=== PATIENT | female | born 1990 | race African-American/Black ===

== ENCOUNTER 2016-09-16 09:24 | Outpatient (CLI) | payer MEDICAID ==
[~2016-09-16] VITALS: Ht 154.9 cm; Wt 65.3 kg
[~2016-09-16 09:24] MED LIST: AC325T PO; AMOX-208 PO; CEPH500C PO; CLOT15CR5 TP; CLOT45CR28 VG; CPR500T PO; CYCL10TA9 PO; DOCU-143 PO; DOXY100C2 PO; Docusate Sodium PO; FERR-57 PO; FERR325C PO; Hydrocodone Bit/Acetaminophen PO; IBP800T PO; IBUP-1773 PO; Ibuprofen PO; NAPR-243 PO; NITR-65 PO; NITR100C3 PO; ONDA8TAB13 PO; ONDAN4ODT PO; OSLT75C PO; PREN1TAB39 PO; PREN1TAB71 PO; PREN1TAB86 PO; SULF-222 PO; SULF1TAB38 PO
--- OUTSIDE RECORDS SUMMARY | 2016-09-16 09:28 | XMS REPORT | Continuity of Care Document ---
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 Name Role Phone ROBEL DSOUZA MD PCP Insurance Providers Payer Name Policy Number Subscriber Name Relationship [facility] [employer] [id number] Cynthia Lam 18 Self / Same As Patient Advance Directives Directive Response Recorded Date/Time Advance Directives No 06/21/14 12:59pm Health Care Power of Pool Servicer No 06/21/14 12:59pm Organ Donor Yes 06/21/14 12:59pm Resuscitation Status Full Code 06/21/14 12:59pm Problems Medical Problems Problem Onset Date Status Threatened Unknown Active Urinary tract infection in Unknown Active Spontaneous Unknown Active Medications Medication Dose Route Sig Days/Qty Instructions Order Date Discontinued Date Status Amoxicillin Trihydrate Mg PO THREE TIMES A DAY 02/14/10 11/03/10 Discontinued Vits W-Ca,Fe,Fa(<1MG) 1 Each PO TWICE A DAY 08/18/10 Discontinued Ferrous Sulfate 325 ( PO DAILY 08/18/10 11/03/10 Discontinued Trimethoprim/Sulfamethoxazole 1 Ea PO TWICE A DAY 19 Qty 05/14/1117/08 Discontinued Ciprofloxacin 1 Tab PO TWICE A DAY 5 Days 09/17/11 11/26/11 Discontinued Naproxen 1 Each PO TWICE A DAY PRN 30 Qty 09/17/11 11/26/11 Discontinued Ondansetron HCl 4 Mg PO EVERY 4HRS 5 Qty FOR NAUSEA AND VOMITING 03/12/13 Discontinued Cephalexin Monohydrate (Keflex) 1 Each PO THREE TIMES A DAY 7 Days 11/0403/12/13 Discontinued Trimethoprim/Sulfamethoxazole 1 Ea PO TWICE A DAY 20 Qty 04/25/1304/07 Discontinued Cephalexin Monohydrate (Keflex) 1 Each PO THREE TIMES A DAY 21 Qty 04/0701/01/14 Discontinued Cephalexin Monohydrate (Keflex) 1 Each PO THREE TIMES A DAY 30 Qty 01/01/14 Discontinued Ondansetron 8 Mg PO EVERY 6 HOURS PRN NAUSEA/VOMITING 10 Qty 11/17/13 01/01/14 Discontinued Nitrofurantoin Macrocrystals 1 Each PO TWICE A DAY 14 Qty FOR INFECTION 01/01/14 06/17/14 Discontinued Vit/Fe Fumarate/Fa 1 Each PO DAILY 06/17/14 Active Ferrous Sulfate 325 Mg PO DAILY 06/17/14 Active Cephalexin Monohydrate (Keflex) 1 Each PO THREE TIMES A DAY 21 Qty 06/21/14 Discontinued Clotrimazole 15 Gm TP BEDTIME 06/17/14 06/21/14 Discontinued Acetaminophen 500 Mg PO EVERY 6 HOURS PRN prn 06/21/14 Active Social History Social History Problem Response Recorded Date/Time Alcohol Use Denies Use 01/01/2014 9:03pm Recreational Drug Use Y +IV METH USE, THC (DENIES WITH THIS VISIT 10/02/13) 05/2014 9:03pm Recent Foreign Travel No 01/01/2014 9:03pm Smoking Status Former Smoker 06/21/2014 1:00pm Do you dip or chew tobacco? No 06/21/2014 1:00pm Query Response Start Date Stop Date Smoking Status Former Smoker 06/21/2013 Hospital Discharge Instructions No hospital discharge instructions. Plan of Care No plan of care. Functional Status No functional status results. Allergies, Adverse Reactions, Alerts Allergen Type Severity Reaction Status Last Updated No Known Drug Allergies Active 05/12/12 Immunizations Name Given Type Date of Influenza Vaccine 05/25/14 Historical Tetanus Booster (TDap) Unknown Historical Vital Signs Acute Vital Signs Vital Response Date/Time Temperature (Fahrenheit) 98.2 degrees F (97.6 - 99.5) Temperature (Calculated Celsius) 36.75451 degrees C (36.4 - 37.5) Temperature Source Temporal Pulse Rate (adult) 90 bpm (60 - 90) Respiratory Rate 18 bpm (12 - 24) O2 Sat by Pulse Oximetry 99 % (88 - 100) Blood Pressure 110/63 mm Hg Pain Pain Intensity 7 Height (Feet) 5 feet Height (Inches) 2.00 inches Height (Calculated Centimeters) 157.655437 cm Weight (Pounds) 166 pounds Weight (Ounces) 0.4 oz Weight (Calculated Grams) 10620.334 gm Weight (Calculated Kilograms) 75.299789 kilograms Calculated BMI 30.36 Results Test Source Date Result Interp. Ref. Range Comments Acetaminophen Level June 09, 2008 4:05am < 10 UG/ML L 10.0-30.0 Acetaminophen Screen June 09, 2008 1:30am Negative - APAP= ACETAMINOPHEN/PARACETAMOL Alanine Aminotransferase (ALT/SGPT) November 17, 2013 9:15pm 25 U/L L 30- 65 Albumin November 17, 2013 9:15pm 4.1 G/DL N 3.4-5.0 Alkaline Phosphatase November 17, 2013 9:15pm 66 U/L N 50-136 Amylase Level November 17, 2013 9:15pm 40 U/L N 25-115 Aspartate Amino Transf (AST/SGOT) November 17, 2013 9:15pm 10 U/L L 15-37 BUN/Creatinine Ratio November 17, 2013 9:15pm 10 - Band Neutrophils September 17, 2011 12:35pm 28 % - Basophils # (Auto) January 01, 2014 10:06pm 0.0 10^3/uL N 0.0-0.1 Basophils % (Manual) September 17, 2011 12:35pm 0 % - Basophils (%) (Auto) January 01, 2014 10:06pm 1 % N 0-10 Blood Urea Nitrogen November 17, 2013 9:15pm 8 MG/DL N 7-18 Calcium Level November 17, 2013 9:15pm 9.0 MG/DL N 8.5-10.1 Carbon Dioxide Level November 17, 2013 9:15pm 26 MMOL/L N 21-32 Chlamydia DNA Probe February 14, 2010 2:27am NEG - Chlamydia/GC DNA Probe Source February 14, 2010 2:27am CERVIX - Chloride Level November 17, 2013 9:15pm 101 MMOL/L N 101-110 Creatinine November 17, 2013 9:15pm 0.8 MG/DL N 0.6-1.3 Eosinophils # (Auto) January 01, 2014 10:06pm 0.1 10^3/uL N 0.0-0.3 Eosinophils % (Manual) September 17, 2011 12:35pm 0 % - Eosinophils (%) (Auto) January 01, 2014 10:06pm 2 % N 0-10 Glucose Level November 17, 2013 9:15pm 80 MG/DL N 74-106 Group A Streptococcus Screen November 03, 2010 8:21am NEGATIVE - HIV (1&2) Antibody May 12, 2012 4:08pm NR - Hematocrit January 01, 2014 10:06pm 29 % L 35-52 Hemoglobin January 01, 2014 10:06pm 10.4 G/DL L 11.5-16.0 Human Chorionic Gonadotropin, Quant January 01, 2014 10:06pm 85678 MIU/ML H -6 HCG QUANT REFERENCE RANGES: MALE: <0.5 - 2.67 NON- FEMALE: <0.5 - 2.90 FEMALE: 0.2 - 1 WK: 5 - 50 1 - 2 WK: 50 - 500 2 - 3 WK: 100 - 5,000 3 - 4 WK: 500 - 10,000 4 - 5 WK: 1,000 - 50,000 5 - 6 WK: 10,000 - 100,000 6 - 8 WK: 15,000 - 200,000 8 - 12 WK: 10,000 - 100,000 Lipase November 17, 2013 9:15pm 113 U/L N 73-393 Lymphocytes # (Auto) January 01, 2014 10:06pm 1.3 X 10^3 N 1.0-4.0 Lymphocytes % (Manual) September 17, 2011 12:35pm 4 % - Lymphocytes (%) (Auto) January 01, 2014 10:06pm 34 % N 12-44 Mean Corpuscular Hemoglobin January 01, 2014 10:06pm 32 PG N 25-34 Mean Corpuscular Hemoglobin Concent January 01, 2014 10:06pm 36 G/DL N 32- 36 Mean Corpuscular Volume January 01, 2014 10:06pm 89 FL N 80-99 Mean Platelet Volume January 01, 2014 10:06pm 9.6 FL N 7.4-10.4 Monocytes # (Auto) January 01, 2014 10:06pm 0.3 X 10^3 N 0.0-1.0 Monocytes % (Manual) September 17, 2011 12:35pm 1 % - Monocytes (%) (Auto) January 01, 2014 10:06pm 8 % N 0-12 Neisseria gonorrhoeae DNA Probe February 14, 2010 2:27am NEG - Neutrophils # (Auto) January 01, 2014 10:06pm 2.1 X 10^3 N 1.8-7.8 Neutrophils % (Manual) September 17, 2011 12:35pm 67 % - Neutrophils (%) (Auto) January 01, 2014 10:06pm 56 % N 42-75 Platelet Count January 01, 2014 10:06pm 202 10^3/uL N 130-400 Potassium Level November 17, 2013 9:15pm 3.6 MMOL/L N 3.6-5.0 Red Blood Count January 01, 2014 10:06pm 3.28 10^6/uL L 4.35-5.85 Red Cell Distribution Width January 01, 2014 10:06pm 11.7 % N 10.0-14.5 Salicylates Level June 09, 2008 1:07am 1.6 MG/DL L 2.8-20.0 Has specimen been collected/obtained? Y Serum Test, Qualitative May 12, 2012 1:00pm NEGATIVE - Sodium Level November 17, 2013 9:15pm 137 MMOL/L N 135-145 Total Bilirubin November 17, 2013 9:15pm 0.6 MG/DL N 0.0-1.0 Total Protein November 17, 2013 9:15pm 7.5 G/DL N 6.4-8.2 Ur Tricyclic Antidepressants Screen April 24, 2013 11:30pm NEGATIVE - Urine Amorphous Sediment August 27, 2012 10:34pm MOD NADEGE PHOSPHATE /LPF H - Has specimen been collected/obtained? YSpecimen Description CLEAN CATCH Urine Amphetamines Screen April 24, 2013 11:30pm POSITIVE H - Urine Bacteria January 01, 2014 10:03pm FEW /HPF H - Has specimen been collected/obtained? YSpecimen Description CLEAN CATCH Urine Barbiturates Screen April 24, 2013 11:30pm NEGATIVE - Urine Benzodiazepines Screen April 24, 2013 11:30pm NEGATIVE - Urine Bilirubin January 01, 2014 10:03pm NEGATIVE - Has specimen been collected/obtained? YSpecimen Description CLEAN CATCH Urine Casts January 01, 2014 10:03pm NONE /LPF - Has specimen been collected/obtained? YSpecimen Description CLEAN CATCH Urine Clarity January 01, 2014 10:03pm SLIGHTLY CLOUDY - Has specimen been collected/obtained? YSpecimen Description CLEAN CATCH Urine Cocaine Screen April 24, 2013 11:30pm NEGATIVE - Urine Color January 01, 2014 10:03pm YELLOW - Has specimen been collected /obtained? YSpecimen Description CLEAN CATCH Urine Crystals January 01, 2014 10:03pm NONE /LPF - Has specimen been collected/obtained? YSpecimen Description CLEAN CATCH Urine Culture Indicated January 01, 2014 10:03pm NO - Has specimen been collected/obtained? YSpecimen Description CLEAN CATCH Urine Glucose (UA) January 01, 2014 10:03pm NEGATIVE - Has specimen been collected/obtained? YSpecimen Description CLEAN CATCH Urine Ketones January 01, 2014 10:03pm NEGATIVE - Has specimen been collected/obtained? YSpecimen Description CLEAN CATCH Urine Leukocyte Esterase January 01, 2014 10:03pm 1+ H - Has specimen been collected/obtained? YSpecimen Description CLEAN CATCH Urine Methamphetamines Screen April 24, 2013 11:30pm POSITIVE H - Urine Mucus January 01, 2014 10:03pm NEGATIVE /LPF - Has specimen been collected/obtained? YSpecimen Description CLEAN CATCH Urine Nitrate June 11, 2007 10:35pm Negative - Has specimen been collected/obtained? YSpecimen Description CLEAN CATCH Urine Nitrite January 01, 2014 10:03pm NEGATIVE - Has specimen been collected/obtained? YSpecimen Description CLEAN CATCH Urine Opiates Screen April 24, 2013 11:30pm NEGATIVE - Urine Phencyclidine Screen April 24, 2013 11:30pm NEGATIVE - Urine Test February 14, 2010 1:33am POSITIVE - Urine Propoxyphene Screen April 24, 2013 11:30pm NEGATIVE - Urine Protein January 01, 2014 10:03pm NEGATIVE - Has specimen been collected/obtained? YSpecimen Description CLEAN CATCH Urine RBC January 01, 2014 10:03pm NONE /HPF - Has specimen been collected/obtained? YSpecimen Description CLEAN CATCH Urine Specific [place] January 01, 2014 10:03pm 1.015 L - Has specimen been collected/obtained? YSpecimen Description CLEAN CATCH Urine Squamous Epithelial Cells January 01, 2014 10:03pm 2-5 /HPF - Has specimen been collected/obtained? YSpecimen Description CLEAN CATCH Urine Trichomonas August 27, 2012 10:34pm MODERATE /HPF H - Has specimen been collected/obtained? YSpecimen Description CLEAN CATCH Urine Urobilinogen January 01, 2014 10:03pm 1 MG/DL - Has specimen been collected/obtained? YSpecimen Description CLEAN CATCH Urine WBC January 01, 2014 10:03pm RARE /HPF - Has specimen been collected/obtained? YSpecimen Description CLEAN CATCH Urine Yeast February 14, 2010 1:33am FEW H - Has specimen been collected/ obtained? YSpecimen Description CLEAN CATCH Urine pH January 01, 2014 10:03pm 7 - Has specimen been collected/ obtained? YSpecimen Description CLEAN CATCH White Blood Count January 01, 2014 10:06pm 3.8 10^3/uL L 4.3-11.0 Serum Alcohol June 09, 2008 1:07am 137 MG/DL N 5-300 Has specimen been collected/obtained? Y Estimat Glomerular Filtration Rate November 17, 2013 9:15pm > 60 - GFR INTERPRETIVE DATA UNITS FOR ESTIMATED GFR (eGFR): mL/min/1.73 M2 REFERENCE RANGE FOR ESTIMATED GFR (eGFR) eGFR NORMAL eGFR >60 MODERATELY DECREASED eGFR 30-59 SEVERLY DECREASED eGFR 15-29 KIDNEY FAILURE <15 (OR DIALYSIS) Urine Oxycodone Screen April 24, 2013 11:30pm NEGATIVE - Blood Morphology Comment September 17, 2011 12:35pm NORMAL - Urine Methadone Screen April 24, 2013 11:30pm NEGATIVE - Urine Cannabinoids Screen April 24, 2013 11:30pm POSITIVE H - Urine Buprenorphine April 24, 2013 11:30pm NEGATIVE - Urine RBC (Auto) January 01, 2014 10:03pm NEGATIVE - Has specimen been collected/obtained? YSpecimen Description CLEAN CATCH Genital Culture Vaginal February 14, 2010 2:27am Floridalma Albicans Influenza Types A,B Antigen (MIKHAIL) Nasopharynx August 22, 2012 10:07am Urine Culture Urine-Clean Catch November 17, 2013 10:25pm Escherichia Coli Gram Stain Cyst/Abscess-Other August 18, 2010 2:00am Procedures No known history of procedures. Encounters Encounter Location Date/Time Departed Clinic Via [facility] 06/21/14 12:37pm Departed Clinic Via [facility] 06/17/14 3:56pm
[2016-09-16 09:32] VITALS: BP 110/65
[2016-09-16 10:11] VITALS: BP 102/63
[2016-09-16 10:41] VITALS: BP 102/59
[2016-09-16] MEDS ORDERED: D5 LR IV SOLUTION 1,000 ML IV ONE (10:47)
[2016-09-16] MEDS ORDERED: ONDANSETRON 4 MG/2 ML (SDV) Z0FRAN IVP PRN (11:15)
[2016-09-16] MEDS ORDERED: D5 LR IV SOLUTION 1,000 ML IV SCH (11:15)
[2016-09-16] MEDS ORDERED: CATHETER FLUSH 10 ML SYR IV PRN (11:15)
[2016-09-16 11:22] LABS: BASOPHILS % (AUTO) 0 % (0-10); EOSINOPHILS # (AUTO) 0.1 10^3/uL (0.0-0.3); EOSINOPHILS % (AUTO) 1 % (0-10); LYMPHOCYTES # (AUTO) 1.3 X 10^3 (1.0-4.0); LYMPHOCYTES % (AUTO) 13 % (12-44); MEAN CORPUSCULAR HEMOGLOBIN 27 PG (25-34); MEAN CORPUSCULAR HGB CONC 32 G/DL (32-36); MEAN CORPUSCULAR VOLUME 84 FL (80-99); MEAN PLATELET VOLUME 10.2 FL (7.4-10.4); MONOCYTES # (AUTO) 0.4 X 10^3 (0.0-1.0); MONOCYTES % (AUTO) 4 % (0-12); NEUTROPHILS # (AUTO) 8.1 X 10^3 (1.8-7.8); NEUTROPHILS % (AUTO) 82 % (42-75); PLATELET COUNT 289 10^3/uL (130-400); RED BLOOD COUNT 3.62 10^6/uL (4.35-5.85); RED CELL DISTRIBUTION WIDTH 14.6 % (10.0-14.5); WHITE BLOOD COUNT 9.9 10^3/uL (4.3-11.0)
[2016-09-16 11:25] LABS: BILIRUBIN,URINE NEGATIVE (NEGATIVE); KETONES,URINE NEGATIVE (NEGATIVE); LEUKOCYTE ESTERASE ,URINE NEGATIVE (NEGATIVE); NITRITE,URINE NEGATIVE (NEGATIVE); PH,URINE 7 (5-9); PROTEIN,URINE NEGATIVE (NEGATIVE); UROBILINOGEN,URINE 1 MG/DL (NORMAL)
[2016-09-16 11:42] LABS: BAND NEUTROPHILS 6 %; NEUTROPHILS % (MANUAL) 75 %
[2016-09-16 11:43] LABS: BASOPHILS % (MANUAL) 0 %; EOSINOPHILS % (MANUAL) 1 %; LYMPHOCYTES % (MANUAL) 16 %; POIKILOCYTOSIS SLIGHT; POLYCHROMASIA SLIGHT; TEAR DROP CELLS SLIGHT
[2016-09-16 11:45] LABS: ALANINE AMINOTRANSFERASE 7 U/L (0-55); ALBUMIN 3.9 G/DL (3.2-4.5); ANION GAP 8 MMOL/L (5-14); ASPARTATE AMINO TRANSFERASE 16 U/L (5-34); BILIRUBIN,TOTAL 0.4 MG/DL (0.1-1.0); BLOOD UREA NITROGEN 9 MG/DL (7-18); BUN/CREATININE RATIO 15; CALCIUM 8.8 MG/DL (8.5-10.1); CARBON DIOXIDE 21 MMOL/L (21-32); CHLORIDE 106 MMOL/L (98-107); CREATININE SERUM 0.59 MG/DL (0.60-1.30); GFR ESTIMATED > 60; GLUCOSE 77 MG/DL (70-105); POTASSIUM 3.9 MMOL/L (3.6-5.0); SODIUM 135 MMOL/L (135-145); TOTAL PROTEIN 6.8 G/DL (6.4-8.2)
[2016-09-16] MEDS: LOPERAMIDE 2 MG (IMODIUM) CAP PO NR ×2 (11:46→11:55)
[2016-09-16 13:10] VITALS: BP 102/59
[2016-09-17] MEDS ORDERED: LOPERAMIDE 2 MG (IMODIUM) CAP PO PRN (09:00)
--- NOTE | 2016-09-17 12:11 | Physician Query-Final Dx ---
KIMBERLY CALDERA 09/17/16 1211: Clinic Account Progress/Dx Physician Query: Please give diagnosis Date of Service Sep 16, 2016 at 09:24 SUZETTE BRIZUELA MD 09/17/16 1810: Clinic Account Progress/Dx DIAGNOSIS: Diagnosis false labor KIMBERLY CALDERA Sep 17, 2016 12:11 SUZETTE BRIZUELA MD Sep 17, 2016 18:10
== END 2016-09-16 13:10 | disposition home or self-care (01) ==
LOC: LDRP 09:24 → WSo 09:24
PROVIDERS: ATTEND Obstetrics & Gynecology
DX: O47.02 False labor before 37 completed weeks of gestation, second trimester (principal); Z3A.21 21 weeks gestation of pregnancy
CPT/HCPCS: 36415; 80053; 80306; 81000; 85007; 85027; 87088; 96360; 96361; 99214

== ENCOUNTER 2022-02-05 13:30 | Emergency (ER) | payer MEDICAID ==
[~2022-02-05] VITALS: Ht 155 cm; Wt 54.0 kg
[2022-02-05] MEDS ORDERED: FAMOTIDINE 20MG/2ML IV (PEPCID) IVP ONE (13:45)
[2022-02-05] MEDS ORDERED: NS IV 1000 ML 1,000 ML IV ONE (13:45)
--- NOTE | 2022-02-05 13:45 | ED General ---
General Chief Complaint: Allergic Reaction Stated Complaint: ALLERGIC REACTION Source of Information: Patient, EMS Exam Limitations: No Limitations (SARINA GREEN APRN) History of Present Illness Date Seen by Provider: Feb 05, 2022 Time Seen by Provider: 13:43 Initial Comments This is a well-appearing 31-year-old female who presented to the ER via [facility] with concerns of tongue swelling and possible allergic reaction. States that her stomach started to "feel weird" around noon today and progressively worsened. She presented to the [facility] she is at the walk-in walk-in clinic [facility] walk-in clinic and she was given 1 dose of EPI, Solu-Medrol 125 mg IV, Benadryl 50 mg IV, and EMS was activated to bring her to the emergency department. States that she has only drank 1 red bull, water, and had some pizza today. All of which she has had in the past with no issues. States that she also smokes marijuana but she has smoked from this patch before and has not had any issues. (SARINA GREEN APRN) Allergies and Home Medications Allergies Coded Allergies: No Known Drug Allergies (Verified , 05/12/12) Patient Home Medication List Home Medication List Reviewed: Yes (SARINA GREEN APRN) No Active Prescriptions or Reported Meds Review of Systems Review of Systems Constitutional: no symptoms reported EENTM: throat swelling, other (tongue swelling) (SARINA GREEN APRN) Past Alxzdor-Ersppz-Bcyaxi Hx Immunizations Up To Date Tetanus Booster (TDap): Less than 5yrs PED Vaccines UTD: Yes (SARINA GREEN APRN) Seasonal Allergies Seasonal Allergies: No (SARINA GREEN APRN) Past Medical History Reproductive Disorders: No Female Reproductive Disorders: Denies, Ovarian Cyst Sexually Transmitted Disease: No HIV/AIDS: No UTI-Chronic Adverse Reaction/Blood Tranf: No (SARINA GREEN APRN) Family Medical History Alcoholism 19 MOTHER Drug abuse 19 MOTHER Diabetes, Stroke (SARINA GREEN APRN) Physical Exam Vital Signs Vital Signs - First Documented (CARLI BEAVERS MD) Vital Signs Capillary Refill : (SARINA GREEN APRN) Height, Weight, BMI Height: 5'1.00" Weight: 144lbs. 0.0oz. 65.423372sk; 27.2 BMI Method:Stated General Appearance: No Apparent Distress, WD/WN Eyes: Bilateral Eye Normal Inspection, Bilateral Eye PERRL, Bilateral Eye EOMI HEENT: PERRL/EOMI, Normal ENT Inspection, Pharynx Normal, Other (tongue normal size, no swelling appreciated ) Neck: Full Range of Motion, Normal Inspection, Supple Respiratory: Lungs Clear, Normal Breath Sounds, No Accessory Muscle Use, No Respiratory Distress Cardiovascular: Regular Rate, Rhythm, No Edema, No Murmur Gastrointestinal: Normal Bowel Sounds, Non Tender, Soft Back: Normal Inspection, No Vertebral Tenderness Extremity: Normal Capillary Refill, Normal Inspection, Normal Range of Motion Neurologic/Psychiatric: Alert, Oriented x3, No Motor/Sensory Deficits, Normal Mood/Affect, nylon winder II-XII Norm as Tested (grossly intact ) Skin: Normal Color, Warm/Dry (SARINA GREEN APRN) Progress/Results/Core Measures Suspected Sepsis SIRS Temperature: Pulse: Respiratory Rate: Blood Pressure / Mean: (SARINA GREEN APRN) Results/Orders Vital Signs/I&O 02/05/22 02/05/22 02/05/22 13:35 13:35 15:50 Temp 36.7 Pulse 88 82 Resp 14 14 B/P (MAP) 122/76 (91) 96/51 Pulse Ox 100 100 O2 Delivery Room Air Room Air Room Air (CARLI BEAVERS MD) Vital Signs/I&O Capillary Refill : (SARINA GREEN SYSTEMS LEAD) Progress Note : Progress Note Upon arrival she is awake and alert, states that her symptoms have pretty much resolved. Went ahead and ordered her Pepcid 20mg IVP. Will monitor in ER for rebound symptoms after receiving Epi. Patient states that she feels much better and would like to go ahead and discharge. States that she does not want to wait in the emergency department for any additional monitoring and that she will return immediately if her symptoms reemerge. Reviewed risk of discharging prior to further evaluation such as return of her symptoms, possibly more severe. Verbalized understanding. States that she will activate EMS if necessary. She did receive a liter of saline while waiting in the emergency department. Discharge plan of care reviewed and she is agreeable with plan. (SARINA GREEN SYSTEMS LEAD) Departure Impression Primary Impression: Angioedema of tongue Disposition: HOME, SELF-CARE Condition: Improved Departure-Patient Inst. Decision time for Depature: 14:07 (SARINA GREEN APRN) Referrals: [facility] [place] (PCP/Family) Primary Care Physician Patient Instructions: Angioedema, Anaphylaxis (DC) Add. Discharge Instructions: Plan: 1. Continue to take Benadryl 25mg by mouth every 4-6 hours today. 2. Follow up with your doctor next week so we can continue evaluation of source of isolate angioedema of your tongue. 3. Return immediately to the ER if you develop any return of symptoms or any new, concerning, or worsening symptoms. All discharge instructions reviewed with patient and/or family. Voiced understa nding. Scripts No Active Prescriptions or Reported Meds ATTENDING PHYSICIAN NOTE: I was physically present as attending physician in the emergency department during the care of this patient, but I was not directly involved in the decision making or delivery of care for this patient. (CARLI BEAVERS MD) SARINA GREEN APRN Feb 05, 2022 13:45 CARLI BEAVERS MD Feb 07, 2022 21:15
[2022-02-05 15:50] VITALS: BP 96/51
== END 2022-02-05 15:50 | disposition home or self-care (01) ==
LOC: EDUNIT# 13:30 → ER 13:31
DX: T78.3XXA Angioneurotic edema, initial encounter (principal)
CPT/HCPCS: 99283